=== PATIENT | female | born 1985 | race Two or more races ===

== ENCOUNTER 2020-04-19 10:38 | Day surgery (SDC) | payer OTHER | END 2020-04-19 20:15 | disposition home or self-care (01) | LOC: CIR.AMB 10:38 | PROVIDERS: ATTEND Obstetrics & Gynecology | DX: O02.1 Missed abortion (principal) ==

== ENCOUNTER 2021-03-28 09:15 | Inpatient (IN) | payer OTHER ==
[~2021-03-28] VITALS: Ht 160 cm; Wt 3.6 kg
[2021-04-02] MEDS ORDERED: PRENATAL TABLE1 EAC1 PO (07:38)
[2021-04-05] MEDS ORDERED: OXYC1TAB9 PO (10:01)
[2021-04-05] MEDS ORDERED: KETO10TA2 PO (10:01)
== END 2021-04-05 12:44 | disposition home or self-care (01) | DRG 788 ==
LOC: O/R 04-02 07:16 → SURG-SUITE 04-02 07:16 → OB/GYN 04-02 08:30 → SURG-SUITE 04-02 11:52
PROVIDERS: ADMIT Obstetrics & Gynecology; ATTEND Obstetrics & Gynecology
PROC: 4A1HXFZ Monitoring of Products of Conception, Cardiac Rhythm, External Approach (ICD-10-PCS; 2021-04-02)
PROC: 10D00Z1 Extraction of Products of Conception, Low, Open Approach (ICD-10-PCS; principal; 2021-04-02 08:30)
DX: O34.211 Maternal care for low transverse scar from previous cesarean delivery (principal); Z37.0 Single live birth; Z3A.39 39 weeks gestation of pregnancy